=== PATIENT | male | born 1965 | race African-American/Black ===

== ENCOUNTER 2023-04-20 05:09 | Emergency (ER) | payer MEDICAID ==
[~2023-04-20] VITALS: Ht 180.3 cm; Wt 87.0 kg
[~2023-04-20 05:09] MED LIST: ATOR10TA69 PO; BENA-8; DILT60TA41 PO; LOV80 SQ; METO-539 PO; WARF6TAB48
[2023-04-20 05:11] VITALS: BP 130/74; PULSE 84; RESP 16; TEMP 97.3; O2SAT 98
[2023-04-20] MEDS ORDERED: CEPH500C2 MT (08:50)
[2023-04-20] MEDS ORDERED: SULF1TAB48 MT (08:50)
== END 2023-04-20 09:41 | disposition home or self-care (01) ==
LOC: ER 05:09
DX: N49.2 Inflammatory disorders of scrotum (principal); Z88.6 Allergy status to analgesic agent; Z86.73 Personal history of transient ischemic attack (TIA), and cerebral infarction without residual deficits
CPT/HCPCS: 99283; Z7610 ×2